=== PATIENT | male | born 1985 | race Caucasian/White ===

== ENCOUNTER 2019-10-12 08:25 | Emergency (ER) | payer OTHER ==
[~2019-10-12] VITALS: Ht 165.1 cm; Wt 81.0 kg
[2019-10-12 08:30] VITALS: BP 123/78
--- NOTE | 2019-10-12 09:05 | PHYS DOC ---
General Adult EDM: Chief Complaint: FOOT INJURY PAIN HPI: HPI: 34-year-old male presents with left foot pain. The patient took an unstable at work. He was running for some reason and twisted his foot. For the last few days he has had quite a bit of pain. Hurts all along the bottom of his foot. When he first wakes up in the morning, it does not hurt. As soon as he puts weight on his foot he has pain. He has not taken any [id number]-mewhtrm medicines. He presents today to make sure is not broken. He denies any other injuries or complaints at this time. Review of Systems: Review of Systems: Constitutional: Denies fever or chills Eyes: Denies change in visual acuity HENT: Denies nasal congestion or sore throat Respiratory: Denies cough or shortness of breath Cardiovascular: Denies chest pain or edema GI: Denies abdominal pain, nausea, vomiting, bloody stools or diarrhea : Denies dysuria Musculoskeletal: Left foot pain Integument: Denies rash Neurologic: Denies headache, focal weakness or sensory changes Endocrine: Denies polyuria or polydipsia Lymphatic: Denies swollen glands Psychiatric: Denies depression or anxiety Heart Score: Risk Factors: Risk Factors: DM, Current or recent (<one month) smoker, HTN, HLP, family history of CAD, obesity. Risk Scores: Score 0 - 3: 2.5% MACE over next 6 weeks - Discharge Home Score 4 - 6: 20.3% MACE over next 6 weeks - Admit for Clinical Observation Score 7 - 10: 72.7% MACE over next 6 weeks - Early Invasive Strategies Physical Exam: PE: Constitutional: Well developed, well nourished, no acute distress, non-toxic appearance. [] HENT: Normocephalic, atraumatic, bilateral external ears normal, oropharynx moist, no oral exudates, nose normal. [] Eyes: PERRLA, EOMI, conjunctiva normal, no discharge. [] Neck: Normal range of motion, no tenderness, supple, no stridor. [] Cardiovascular: Heart rate regular rhythm, no murmur [] Lungs & Thorax: Bilateral breath sounds clear to auscultation [] Abdomen: Bowel sounds normal, soft, no tenderness, no masses, no pulsatile masses. [] Skin: Warm, dry, no erythema, no rash. [] Back: No tenderness, no CVA tenderness. [] Extremities: Right foot with plantar tenderness. [] Neurologic: Alert and oriented X 3, normal motor function, normal sensory function, no focal deficits noted. [] Psychologic: Affect normal, judgement normal, mood normal. [] EKG: EKG: [] Radiology/Procedures: Radiology/Procedures: [] Impressions: AP lateral and oblique views the left foot no comparison. Indication foot pain after fall. FINDINGS: No fracture subluxation dislocation. No significant soft tissue swelling. Bones of the midfoot are aligned. Electronically signed by: Jamie Bill MD (10/12/2019 9:00 AM) [id number] DICTATED AND SIGNED BY: JAMIE BILL MD DATE: 10/12/19 09 CC: KRISTA ZEPEDA DO; PCP,NO ~ Course & Med Decision Making: Course & Med Decision Making Pertinent Labs and Imaging studies reviewed. (See chart for details) The patient's x-ray is negative. His some symptoms are consistent with either midfoot sprain or acute plantar fasciitis. I have advised ibuprofen 3 times a day and stretching exercises. He is stable for discharge at this time. [] Dragon Disclaimer: Dragon Disclaimer: This electronic medical record was generated, in whole or in part, using a voice recognition dictation system. Departure Departure: Impression: Primary Impression: Plantar fasciitis of left foot Disposition: HOME/RESIDENCE PRIOR TO ADM Condition: STABLE Referrals: PCP,NO (PCP) Patient Instructions: Plantar Fasciitis (Heel Spur Syndrome) with Rehab- [facility] Justification of Admission: Justification of Admission: Justification of Admission Dx: N/A KRISTA ZEPEDA DO Oct 12, 2019 09:05
== END 2019-10-12 09:27 | disposition home or self-care (01) ==
LOC: ER 08:25
DX: M72.2 Plantar fascial fibromatosis (principal)
CPT/HCPCS: 73630; 99283

== ENCOUNTER 2021-04-08 11:04 | Emergency (ER) | payer OTHER ==
[~2021-04-08] VITALS: Ht 165.1 cm; Wt 92.7 kg
--- NOTE | 2021-04-08 11:25 | PHYS DOC ---
Past History Past Medical History: No Pertinent History (BERYL LAL APRN) Past Surgical History: Cholecystectomy, Tonsillectomy Additional Past Surgical Histo: skin graft knee (BERYL LAL APRN) Alcohol Use: None (BERYL LAL APRN) General Adult EDM: Chief Complaint: HEAD, FACE, NECK, TRAUMA HPI: HPI: Patient is a 35-year-old male that presents today with head and neck pain. Patient states on Wednesday he was getting out of his truck at work and fell and hit his head he said he had a loss of consciousness he woke up when one of his coworkers was standing over him. Patient states he was taken to the [facility] where he was evaluated and a CT scan was done, according to his report he states everything was normal and he was sent home. Patient continues to have increased tiredness, fatigue, blurred vision, and neck pain. He said he is just not feeling like himself and he is having nausea as well. (BERYL LAL APRN) Review of Systems: Review of Systems: Constitutional: Denies fever or chills Eyes: Blurred vision HENT: Neck pain Respiratory: Denies cough or shortness of breath Cardiovascular: Denies chest pain or edema GI: Nausea : Denies dysuria Musculoskeletal: Denies back pain or joint pain Integument: Denies rash Neurologic: Headache and fatigue Endocrine: Denies polyuria or polydipsia Lymphatic: Denies swollen glands Psychiatric: Denies depression or anxiety (BERYL LAL APRN) Allergies: Allergies: Allergies Coded Allergies Type Severity Reaction Last Updated Verified No Known Drug Allergies 10/12/19 No (BERYL LAL APRN) Physical Exam: PE: Constitutional: Well developed, well nourished, no acute distress, non-toxic appearance. [] HENT: With inspection and palpation of the head tenderness was noted along the occipital area, no lacerations, abrasions, contusions, or ecchymosis was noted no berry signs was noted tympanic membranes are clear no blood noted and no drainage from the ears. Eyes: PERRLA, EOMI, conjunctiva normal, no discharge. [] Neck: Normal range of motion, no tenderness, supple, no stridor. [] Cardiovascular:Heart rate regular rhythm, no murmur [] Lungs & Thorax: Bilateral breath sounds clear to auscultation [] Abdomen: Bowel sounds normal, soft, no tenderness, no masses, no pulsatile masses. [] Skin: Warm, dry, no erythema, no rash. [] Back: No tenderness, no CVA tenderness. [] Extremities: No tenderness, no cyanosis, no clubbing, ROM intact, no edema. [] Neurologic: Alert and oriented X 3, normal motor function, normal sensory function, no focal deficits noted, steady gait Psychologic: Affect normal, judgement normal, mood normal. [] (BERYL LAL APRN) Current Patient Data: Vital Signs: Vital Signs Date Time Temp Pulse Resp B/P (MAP) Pulse Ox O2 Delivery O2 Flow Rate FiO2 04/08/21 11:15 97.9 58 16 138/90 (106) 97 Room Air (BERYL LAL APRN) EKG: EKG: [] (BERYL LAL APRN) Radiology/Procedures: Radiology/Procedures: []REASON: fall with LOC ON WEDNESDAY PROCEDURE: CT HEAD AND CERVICAL SPINE WO CT HEAD WITHOUT CONTRAST 04/08/2021 11:20 AM Indication: Reason: fall with LOC ON WEDNESDAY / . Instructions: / History: Comparison: None Procedure: Multidetector CT imaging of the head was performed without the administration of contrast. Findings: There is no evidence of acute intracranial hemorrhage. There is no evidence of acute territorial infarction. Please note that CT is limited for evaluation of acute ischemia. No mass effect or midline shift is identified . The ventricles and basilar cisterns have an appropriate appearance. No abnormal extra-axial fluid collections are seen. No acute osseous changes are identified. Impression: No evidence of acute intracranial abnormality CT cervical spine without contrast. 04/08/2021 11:20 AM Indication:Reason: fall with LOC ON WEDNESDAY / . Instructions: / History: Comparison Study: None Technique: Multidetector CT imaging of the cervical spine was obtained without administration of contrast. Findings: There is no evidence of acute fracture or alignment abnormality of the cervical. Vertebral body heights and disc spaces are maintained. The atlantoaxial articulation is within normal limits. There is no prevertebral soft tissue swelling. Soft tissues are otherwise unremarkable. No bony compromise of the spinal canal is seen. Impression: No evidence of acute fracture or alignment abnormality of the cervical spine Spine CT DOSING PQRS STATEMENT: One or more of the following individualized dose reduction techniques were utilized for this examination: 1. Automated exposure control 2. Adjustment of the mA and/or kV according to patient size 3. Use of iterative reconstruction technique Electronically signed by: Brad Pearl MD (04/08/2021 11:44 AM) [id number] (BERYL LAL APRN) Heart Score: C/O Chest Pain: N/A Risk Factors: Risk Factors: DM, Current or recent (<one month) smoker, HTN, HLP, family history of CAD, obesity. Risk Scores: Score 0 - 3: 2.5% MACE over next 6 weeks - Discharge Home Score 4 - 6: 20.3% MACE over next 6 weeks - Admit for Clinical Observation Score 7 - 10: 72.7% MACE over next 6 weeks - Early Invasive Strategies (BERYL LAL APRN) Course & Med Decision Making: Course & Med Decision Making Pertinent Labs and Imaging studies reviewed. (See chart for details) 1215: Did review radiological findings with Dr. Bullock. Dense reassessed patient patient is on his phone playing a game when reassessment occurred patient continues to have headache and nausea. 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 Patient will also be given the name of Dr. Mckoy who is with neurology for further management of postconcussion syndrome. Patient is to take Tylenol and/or ibuprofen as needed for fever and pain. Patient can also take Zofran as needed for nausea which she will be given a prescription for. Patient verbalized understanding of this and is agreeable to the plan of care. (BERYL LAL APRN) Course & Med Decision Making I was the Attending physician on the above date of service of this patient. This patient was evaluated, examined, treated, and dispositioned from the emergency department by the mid-level practitioner. I reviewed history, physical exam findings and plan of care with midlevel practitioner and agreed to provided care Electronically signed, Kristie Bartlett DO (KRISTIE BARTLETT DO) Tabby Disclaimer: Tabby Disclaimer: This electronic medical record was generated, in whole or in part, using a voice recognition dictation system. (BERYL LAL APRN) Departure Departure: Impression: Primary Impression: Post concussion syndrome Disposition: HOME / SELF CARE / HOMELESS Condition: STABLE Referrals: PCP,ANDRE (PCP) VIOLET MCKOY MD Patient Instructions: Concussion and Brain Injury Additional Instructions: Tylenol and/or ibuprofen as needed for pain Zofran take 1 tablet every 6 hours as needed for nausea. Take the medication wait 30 minutes prior to trying some by mouth fluids If you continue to be nauseated continue with only clear liquids until the nausea passes and then advance diet as tolerated Avoid electronics such as your phone, TV, avoid driving, and rest why continued to have your headaches. Follow-up with Dr. Mckoy and with your Workmen's Comp. agencies for further management. Scripts Ondansetron (ONDANSETRON ODT) 4 Mg Tab.rapdis 1 TAB PO PRN Q6-8HRS for nausea, #16 TAB Prov: BERYL LAL APRN 04/08/21 BERYL LAL APRN Apr 08, 2021 11:25 KRISTIE BARTLETT DO Apr 10, 2021 07:21
--- NOTE | 2021-04-08 11:46 | RAD ---
CT HEAD WITHOUT CONTRAST 04/08/2021 11:20 AM Indication: Reason: fall with LOC ON Wednesday. Instructions: / History: Comparison: None Procedure: Multidetector CT imaging of the head was performed without the administration of contrast. Findings: There is no evidence of acute intracranial hemorrhage. There is no evidence of acute territ orial infarction. Please note that CT is limited for evaluation of acute ischemia. No mass effect or midline shift is identified . The ventricles and basilar cisterns have an appropriate appearance. No abnormal extra-axial fluid collections are seen. No acute osseous changes are identified. Impression: No evidence of acute intracranial abnormality CT cervical spine without contrast. 04/08/2021 11:20 AM Indication:Reason: fall with LOC ON WEDNESDAY / . Instructions: / History: Comparison Study: None Technique: Multidetector CT imaging of the cervical spine was obtained without administration of cont rast. Findings: There is no evidence of acute fracture or alignment abnormality of the cervical. Vertebral body heights and disc spaces are maintained. The atlantoaxial articulation is within normal limits. There is no prevertebral soft tissue swelling. Soft tissues are otherwise unremarkable. No bony compr omise of the spinal canal is seen. Impression: No evidence of acute fracture or alignment abnormality of the cervical spine Spine CT DOSING PQRS STATEMENT: One or more of the following individualized dose reduction techniques were utilized for this examinat ion: 1. Automated exposure control 2. Adjustment of the mA and/or kV according to patient size 3. Use of iterative reconstruction technique Electronically signed by: Brad Pearl MD (04/08/2021 11:44 AM) [id number]
[2021-04-08] MEDS ORDERED: ONDA4TAB12 PO (12:21)
[2021-04-08 12:30] VITALS: BP 132/81
== END 2021-04-08 12:42 | disposition home or self-care (01) ==
LOC: ER 11:04
DX: F07.81 Postconcussional syndrome (principal); M54.2 Cervicalgia; Z90.49 Acquired absence of other specified parts of digestive tract
CPT/HCPCS: 70450; 72125; 99284-25